=== PATIENT | male | born 1960 | race Caucasian/White ===

== ENCOUNTER 2023-01-19 06:45 | Outpatient (OUT) | payer BC, SELFPAY ==
[2023-01-19 07:27] LABS: Anion Gap 11.9; BUN Creatinine Ratio 16.9; Calcium 9.2 mg/dL (8.5-10.1); Carbon Dioxide 28.2 mmol/L (21.0-32.0); Chloride 104 mmol/L (98-107); Estimated GFR (African America >60 (>=60); Estimated GFR (Non-African Ame >60 (>=60); Glucose 102 mg/dL (74-106); Potassium 4.1 mmol/L (3.5-5.1); Sodium 140 mmol/L (136-145)
== END 2023-01-19 06:46 ==
LOC: LAB 06:51
PROVIDERS: PCP Internal Medicine
DX: R35.1 Nocturia (principal)
CPT/HCPCS: 36415; 80048

== ENCOUNTER 2023-02-04 11:11 | Outpatient (OUT) | payer BC, SELFPAY ==
--- NOTE | 2023-02-04 11:20 | XR_ITS ---
The [address] [address] Patient Name: SHAWANDA DIGGS MRN: [id number] date: 1960 Sex: M Assigned Patient Location: RAD Current Patient Location: [facility] Accession/Order Number: [id number] Exam Date: 02/04/2023 11:25 Report Date: 02/04/2023 12:03 At the request of: ZENY TRINIDAD Procedure: XR chest 2V EXAM: XR chest 2V HISTORY: Chronic cough R05.3 COMPARISON: None. TECHNIQUE: PA and lateral views of the chest. FINDINGS: The cardiomediastinal silhouette is normal. No focal consolidation is identified. There is no pneumothorax. No pleural effusion is noted. The osseous structures are intact. IMPRESSION: No acute cardiopulmonary process. Electronically authenticated by: QUYNH MENDOZA Date: 02/04/2023 12:03
== END 2023-02-04 11:12 | disposition home or self-care (01) ==
LOC: RAD 11:13
PROVIDERS: PCP Internal Medicine; Visit Provider Physician Assistant
DX: R05.3 Chronic cough (principal)
CPT/HCPCS: 71046

== ENCOUNTER 2023-08-24 06:31 | Outpatient (OUT) | payer BC, SELFPAY ==
[2023-08-24 07:09] LABS: Anion Gap 14.1; BUN Creatinine Ratio 15.6; Carbon Dioxide 26.8 mmol/L (21.0-32.0); Chloride 105 mmol/L (98-107); Estimated GFR (African America >60 (>=60); Estimated GFR (Non-African Ame >60 (>=60); Glucose 101 mg/dL (74-106); Potassium 3.9 mmol/L (3.5-5.1); Sodium 142 mmol/L (136-145)
== END 2023-08-24 06:32 | disposition home or self-care (01) ==
LOC: LAB 06:33
PROVIDERS: PCP Internal Medicine
DX: R35.1 Nocturia (principal)
CPT/HCPCS: 36415; 80048

== ENCOUNTER 2024-04-02 10:10 | Emergency (ER) | payer BC, SELFPAY ==
[2024-04-02 10:13] VITALS: BP 174/93; PULSE 95; TEMP 36.6; O2SAT 95; BMI 30.1
--- NOTE | 2024-04-02 10:22 | XR_ITS ---
The [address] [address] Patient Name: SHAWANDA DIGGS MRN: [id number] date: 1960 Sex: M Assigned Patient Location: ER Current Patient Location: ED.MAIN Accession/Order Number: [id number] Exam Date: 04/02/2024 10:30 Report Date: 04/02/2024 10:54 At the request of: RIMA GARCIA Procedure: XR abdomen 1V EXAMINATION: XR abdomen 1V HISTORY: Rectal pressure, possible constipation COMPARISON: No relevant comparison available. FINDINGS: BOWEL GAS PATTERN: Moderate to large amount of stool within the sigmoid colon and rectum. Relatively empty descending colon. No abnormal bowel dilation or appreciable fluid levels. CALCIFICATIONS: None significant. OTHER: Negative. No abnormal gaseous collections. XR/XR abdomen 1V IMPRESSION: 1. No bowel obstruction. 2. Moderate to large stool burden within sigmoid colon and rectum; possibly due to constipation. Electronically authenticated by: CAESAR WATKINS Date: 04/02/2024 10:54
--- NOTE | 2024-04-02 10:22 | ED.GENADUL1 ---
HPI HPI - General Adult General Chief complaint: Abdominal Pain Stated complaint: ABDOMINAL PAIN Time Seen by Provider: 04/02/24 10:13 Source: patient Mode of arrival: walk-in Limitations: no limitations History of Present Illness HPI narrative: 63-year-old male presents for chief complaint of rectal pressure. He states he normally has a bowel movement every morning and he had 1 yesterday but he felt like he could not go today. No bleeding or abdominal pain or vomiting. Related Data Home Medications ?Medication ?Instructions ?Recorded ?Confirmed desmopressin 0.2 mg tablet 0.2 mg PO BEDTIME 04/02/24 04/02/24 terbinafine HCl 250 mg tablet 250 mg PO DAILY 04/02/24 04/02/24 Allergies Allergy/AdvReac Type Severity Reaction Status Date / Time No Known Drug Allergies Allergy Verified 04/02/24 10:17 Opioid HPI Opioid Management Most Recent Opioid Data: No Data to Display Review of Systems ROS Narrative A ten point review of systems is negative except as noted above. Exam Narrative Exam Narrative: Nurses note and vital signs reviewed and patient is not hypoxic. General: The patient appears well and in no apparent distress. Patient is resting comfortably on cart. Skin: Warm, dry, no pallor noted. There is no rash noted. Head: Normocephalic, atraumatic Eye: Normal conjunctiva, no drainage Ears, Nose, Mouth, and Throat: oral mucosa is moist. Nares patent. Cardiovascular: Regular Rate and Rhythm Respiratory: Patient is in no distress, no accessory muscle use, lungs are clear to auscultation, no wheezing, rales or rhonchi Back: non-tender GI: Soft and nontender. Perianal area shows skin tag but no external hemorrhoids. Musculoskeletal: The patient has no evidence of calf tenderness, no pitting edema, symmetrical pulses noted bilaterally Neurological: A&O, normal speech Psychiatric: Cooperative Constitutional Vital Signs, click to edit/add: Last Vital Signs Temp 97.8 F 04/02/24 10:13 Pulse 95 H 04/02/24 10:13 Resp 20 04/02/24 10:13 BP 174/93 H 04/02/24 10:13 Pulse Ox 95 04/02/24 10:13 O2 Del Method Room Air 04/02/24 10:13 Course Vital Signs Vital signs: Vital Signs Temperature 97.8 F 04/02/24 10:13 Pulse Rate 95 H 04/02/24 10:13 Respiratory Rate 20 04/02/24 10:13 Blood Pressure 174/93 H 04/02/24 10:13 Pulse Oximetry 95 04/02/24 10:13 Oxygen Delivery Method Room Air 04/02/24 10:13 Temperature 97.8 F 04/02/24 10:13 Pulse Rate 95 H 04/02/24 10:13 Respiratory Rate 20 04/02/24 10:13 Blood Pressure 174/93 H 04/02/24 10:13 Pulse Oximetry 95 04/02/24 10:13 Oxygen Delivery Method Room Air 04/02/24 10:13 Medical Decision Making MDM Narrative Medical decision making narrative: KUB on my interpretation shows a large amount of stool in his rectum. He was given suppository and Dulcolax by mouth and he is able to be discharged home. Treatment diagnosis and follow-up were discussed with the patient. I do not suspect prostatitis. Differential Diagnosis Differential Diagnosis: Constipation, hemorrhoid Imaging Data Abdominal x-ray: My impression: Large amount of stool in rectum. Discharge Plan Discharge Stand Alone Forms: Work/School Release, Portal Instructions Chief Complaint: Abdominal Pain Clinical Impression: Constipation Patient Disposition: Home, Self-Care Time of Disposition Decision: 10:52 Condition: Good Mode of Transportation: Private Vehicle Prescriptions / Home Meds: No Action terbinafine HCl 250 mg tablet 250 mg PO DAILY desmopressin 0.2 mg tablet 0.2 mg PO BEDTIME Print Language: Northern Irish Instructions: Constipation (ED) Additional Instructions: Continue the MiraLAX. Referrals: SHAWANDA PA [Primary Care Provider] - 1 week
--- OUTSIDE RECORDS SUMMARY | 2024-04-02 10:39 | XMS_ITS | CCD ---
Author Organization [facility] Inform ion [facility] Care Team Providers Care Warning Analyst Name Role Phone ZENY TRINIDAD Admitting Unavailable ZENY TRINIDAD Attending Unavailable RONNA HAWKINS V Consulting Unavailable ZENY TRINIDAD Consulting Unavailable SHAWANDA PA Attending Unavailable Problems Problem Classification Problem Date Documented Da te Episodic/Chronic Other lower respiratory disease (4 sources) Cough; Translations: [COUGH] Onset: 07-29-2019 Episodic Screening and history of mental health and substance abuse codes (1 source) Personal history of nicotine dependence; Translations: [PERSONAL HISTORY OF NICOTINE DEPEND] Onset: 07-30-2019 Episodic Results Test Name Value Interpretation Reference Range Facil ity XR CHEST 2 Von 07-29-2019 XR CHEST 2 V Patient: SHERLYN DIGGS. Exam Date: 07/29/2019 : 1960 Gender:M Ordering : DR ZENY TRINIDAD PA Admission #: [id number] Family : Order #: [id number] CLICK HERE TO VIEW EXAM RADIOLOGY REPORT PROCEDURE: RADIOGRAPH CHEST 2 VIEWS COMPARISON: None. INDICATIONS: Acute cough for over two months, former smoker FINDINGS: LUNGS: No significant pulmonary parenchymal abnormalities. VASCULATURE: No increased pulmonary vasculature. PLEURA: No pneumothorax, effusion, or pleural thickening. Elevated right hemidiaphragm CARDIAC: No cardiomegaly or cardiac silhouette abnormality. MEDIASTINUM: No visible mass or adenopathy. BONES: No fracture or visible bone lesion. OTHER: Negative. CONCLUSION: No acute disease. Dictated by: Ronna Hawkins M.D. on 07/29/2019 at 18:40 Approved by: Ronna Hawkins M.D. on 07/29/2019 at 18:40 [facility] Encounters Encounter Date Encounter Type Care Provider Facility Start: 03-23-2024 End: 03-23-2024 ambulatory SHAWANDA PA Not Available Start: 07-29-2019 End: 07-30-2019 Patient encounter procedure ZENY TRINIDAD Facility:[facility] Payers Date Payer Category Payer Unknown [id number] 1961 Unknown [id number] 1960 Unknown [id number] 1960 Unknown [id number] Summary Purpose Family History No Family History Records FoundNo Family History Records Found Advance Directives No Advanced Directives Records FoundNo Advanced Directives Records Found Additional Source Comments (unrecognized sect ion and content) No Status Records FoundNo Status Records Found INFORMATION SOURCE (unrecogn ized section and content) DATE CREATED AUTHOR 07/30/2019 [facility] DATE CREATED AUTHOR AUTHOR'S ORGANIZ ATPENELOPE 03/25/2024 [facility] FOR RECORDS PERTAINING TO PATIENTS WHO ARE OR HAVE BEEN ENROLLED IN A CHEMICAL DEPENDENCY/SUBSTANCEABUSE PROGRAM, SOME INFORMATION MAY BE OMITTED. This clinical summary was aggregated from multiple sources. Caution should be exercised in using it in the provision of clinical care. This summary normalizes information from multiple sources, and as a consequence, information in this document may materially change the coding, format and clinical context of patient data. In addition, data may be omitted in some cases. CLINICAL DECISIONS SHOULD BE BASED ON THE PRIMARY CLINICAL RECORDS. [facility] [employer] provides no warranty or guarantee of the accuracy or completeness of information in this document.
[2024-04-02] MEDS: BISACODYL 5 MG TABLET 10 MG PO (11:00)
[2024-04-02] MEDS: BISACODYL 10 MG RECTAL SUPPOSITORY PR (11:01)
== END 2024-04-02 11:07 | disposition home or self-care (01) ==
PROVIDERS: Emergency Provider Emergency Medicine; PCP Internal Medicine
DX: K59.00 Constipation, unspecified (principal)
CPT/HCPCS: 74018; 99283

== ENCOUNTER 2025-06-05 07:11 | Outpatient (OUT) | payer BC, SELFPAY ==
--- OUTSIDE RECORDS SUMMARY | 2025-06-05 07:13 | XMS_ITS | CCD ---
Author Organization [facility] Inform ion Partnership [facility] Care Team Providers Care Fire Protection Engineering Technician Name Role Phone ZENY TRINIDAD Admitting Unavailable ZENY TRINIDAD Attending Unavailable RONNA HAWKINS V Consulting Unavailable ZENY TRINIDAD Consulting Unavailable Garrett Orozco MD Unavailable [phone] Garrett Orozco MD Primary Care Provider ZENY TRINIDAD Attending Unavailable Allergies Allergy ClassificationReported Allergen(s)Allergy TypeDate of OnsetReaction(s) Facility (4 sources)atorvastatinDrug Nsyvtzx06-16-3173[facility] Work Phone: (4 sources)Rosuvastatin calciumAllergy to zxakqcbbj59-08-7899[facility] (4 sources)SimvastatinAllergy to xwslpylwk84-26-6544[facility] Medications Current Medications MedicationDrug Class(es)DatesSig (Normalized)Sig (Original)cholecalciferol 0.025 mg oral tablet (3 sources)Vitamin Dtake 1 tablet by mouth once dailycholecalciferol (Vitamin D- 3) 25 MCG tablet Take 25 mcg by mouth Daily Activedesmopressin acetate 0.2 mg oral tablet (4 sources)Vasopressin Analog, Factor VIII Activatordesmopressin (DDAVP) 0.2 MG tablet Take 0.2 mg by mouth as needed at bedtime Activedesonide 0.5 mg/ml topical cream (4 sources)CorticosteroidStart: 48-69-3476dasstxqb (DesOwen) 0.05 % cream Apply 1 application topically 2 (two) times a day as needed for irritation 08/21/2022 Activefamotidine 20 mg oral tablet (4 sources)Histamine-2 Receptor Antagonistfamotidine (Pepcid) 20 MG tablet Take 1 tablet by mouth as needed at bedtime for indigestion or heartburn. Active fenofibrate 145 mg oral tablet (1 source)Peroxisome Proliferator Receptor alpha AgonistStart: 91-92-6012qwfr 1 tablet by mouth once dailyfenofibrate (Tricor) 145 MG tablet Indications: Mixed hyperlipidemia Take 1 tablet (145 mg) by mouth Daily 90 tablet 3 03/25/2025 ActiveStart: 91-51-8907boxm 1 tablet by mouth once dailyfenofibrate (Tricor) 145 MG tablet Indications: Mixed hyperlipidemia Take 1 tablet (145 mg) by mouth Daily 90 tablet 3 03/25/2025 Activefluorouracil 50 mg/ml topical cream (4 sources)Nucleoside Metabolic InhibitorStart: 45-55-0438hdzntznoesct (Efudex) 5 % cream Apply 1 application topically Daily as needed 08/27/2023 Active loratadine 10 mg oral tablet (2 sources) End: 11-41-5697kolk 1 tablet by mouth once dailyloratadine (Claritin) 10 MG tablet Take 10 mg by mouth Daily 03/24/2025 Discontinued (Therapy completed) Multiple Vitamin (MULTIVITAMIN ADULT PO) (4 sources)take 1 tablet by mouth once dailyMultiple Vitamin (MULTIVITAMIN ADULT PO) Take 1 tablet by mouth 1 (one) time each day. Activeomeprazole 20 mg delayed release oral capsule (2 sources)Proton Pump Inhibitor End: 52-37-6139hbne 1 capsule by mouth once daily as neededomeprazole (PriLOSEC) [address] capsule Take 1 capsule by mouth 1 (one) time each day at the same time. PRN 03/24/2025 Discontinued (Therapy completed)terbinafine 250 mg oral tablet (3 sources)Allylamine AntifungalStart: 03-24-2025 End: 91-69-8993vzfb 1 tablet by mouth once dailyterbinafine (LamISIL) 250 MG tablet Indications: Onychomycosis of great toe Take 1 tablet (250 mg) by mouth Daily 90 tablet 03/24/2025 06/22/2025 Activetriamcinolone acetonide 0.001 mg/mg topical ointment (3 sources)CorticosteroidStart: 27-16-5842weiqrwxnuqyng (Kenalog) 0.1 % ointment Apply 1 application topically 2 (two) times a day as needed for irritation 03/02/2025 Activezinc gluconate 50 mg oral tablet (3 sources)take 1 tablet by mouth once dailyzinc gluconate 50 MG tablet Take 50 mg by mouth Daily Active Problems Active Problems Problem ClassificationProblemDateDocumented DateEpisodic/ChronicDisorders of lipid metabolism (7 sources)Mixed hyperlipidemia; Translations: [Mixed hyperlipidemia]Onset: 695802-86-8703WeyqwukFjgujzzkztjlqy and diverticulitis (6 sources)Diverticular disease; Translations: [Diverticulosis of intestine, part unspecified, without perforation or abscess without bleeding]Onset: 630019-45-5186VmzmlziIjdvynywia disorders (6 sources)Gastroesophageal reflux disease; Translations: [Gastro-esophageal reflux disease without esophagitis]Onset: 640549-19-9941DgtophjEzdyyivhnra of prostate (6 sources)Benign prostatic hyperplasia; Translations: [Benign prostatic hyperplasia without lower urinary tract symptoms]Onset: ChronicMycoses (2 sources)Onychomycosis of toenails; Translations: [Tinea unguium]03-24-2025 EpisodicOther circulatory disease (5 sources)Labile hypertension due to being in a clinical environment; Translations: [Elevated blood-pressure reading, without diagnosis of hypertension]Onset: 513299-16-6293PtcqoxqrNxbrb lower respiratory disease (4 sources)Cough; Translations: [COUGH]Onset: 69-90-9302DdfnqnhdMrpjt nutritional; endocrine; and metabolic disorders (5 sources)Overweight; Translations: [Overweight]Onset: EpisodicOther screening for suspected conditions (not mental disorders or infectious disease) (2 sources)Patient encounter status; Translations: [Encounter for screening for malignant neoplasm of prostate]01-27-5515QouucqhiVfdlw upper respiratory disease (6 sources)Seasonal allergy; Translations: [Other seasonal allergic rhinitis] Onset: 950687-27-1723HfslvchDxzhdiqq codes; unclassified (1 source)Other specified health status; Translations: [Other drug allergy] Onset: 019755-90-3261VwcugnkdXraohyughpn; intervertebral disc disorders; other back problems (6 sources)Lumbosacral spondylosis without myelopathy; Translations: [Spondylosis without myelopathy or radiculopathy, lumbosacral region]Onset: 367080-77-4644Twghqhc Past or Other Problems Problem ClassificationProblemDateDocumented DateEpisodic/ChronicDiabetes mellitus without complication (6 sources)Impaired glucose tolerance; Translations: [Impaired glucose tolerance (oral)]Onset: 189013-95-1832YltxbhhzGcinr lower respiratory disease (6 sources)Chronic cough; Translations: [Chronic cough]Onset: 02-04-2023 34-46-4596PiucvjpaVupetwxzu and history of mental health and substance abuse codes (7 sources)Personal history of nicotine dependence; Translations: [Ex-smoker] Onset: 925353-96-7588Awihvrco Results Test NameValueInterpretationReference RangeFacilityCBC (INCLUDES DIFF/PLT)on 61-45-1013Zbyrdvoqz (Bld) [#/Vol]0.049 10*3/uLNormal0-200[facility] Comment on above:Performed By: #### 7600, 496, 91793, 6399 #### [facility] [place] [address] Rail Project Engineer: Kosta Senior MDBasophils/100 WBC (Bld)0.7 %NormalQuest DiagnosticsComment on above:Performed By: #### 7600, 496, 90597, 6399 #### [facility] [place] [address] Rail Project Engineer: Kosta Senior MDEosinophils (Bld) [#/Vol]0.112 10*3/uLNormal 15-500Quest DiagnosticsComment on above:Performed By: #### 7600, 496, 78298, 6399 #### [facility] [place] [address] Rail Project Engineer: Kosta Senior MDEosinophils/100 WBC (Bld)1.6 %NormalQuest DiagnosticsComment on above:Performed By: #### 7600, 496, 73351, 6399 #### [facility] of [place] [address] Rail Project Engineer: Kosta Senior MDErythrocyte distribution width (RBC) [Ratio] 13.5 %Aqaizf68.0-15.0Quest DiagnosticsComment on above:Performed By: #### 7600, 496, 50688, 6399 #### [facility] of [place] [address] [employer] Project Engineer: Kosta Senior MDHematocrit (Bld) [Volume fraction]49.9 %Normal 38.5-50.0Quest DiagnosticsComment on above:Performed By: #### 7600, 496, 16927, 6399 #### [facility] of [place] [address] Rail Project Engineer: Kosta Senior MDHemoglobin (Bld) [Mass/Vol]16.2 g/dLNormal 13.2-17.1Quest DiagnosticsComment on above:Performed By: #### 7600, 496, 40088, 6399 #### [facility] of [place] [address] Rail Project Engineer: Kosta Senior MDLymphocytes (Bld) [#/Vol]1.673 10*3/uLNormal 850-3900Quest DiagnosticsComment on above:Performed By: #### 7600, 496, 87425, 6399 #### [facility] of [place] [address] Rail Project Engineer: Kosta Senior MDLymphocytes/100 WBC (Bld)23.9 %NormalQuest DiagnosticsComment on above:Performed By: #### 7600, 496, 37961, 6399 #### [facility] of [place] [address] Rail Project Engineer: Kosta Senior MDMCH (RBC) [Entitic mass]29.6 vnOkpzaw66.0-33.0 [facility]osticsComment on above:Performed By: #### 7600, 496, 41274, 6399 #### [facility] [place] [address] Rail Project Engineer: Kosta Senior MDMCHC (RBC) [Mass/Vol]32.5 g/mMVzggjn88.0-36.0 [facility]osticsComment on above:Result Comment: For adults, a slight decrease in the calculated MCHC value (in the range of 30 to 32 g/dL) is most likely not clinically significant; however, it should be interpreted with caution in correlation with other red cell parameters and the patient's clinical condition.Performed By: #### 7600, 496, 28310, 6399 #### [facility] [place] [address] Rail Project Engineer: Kosta Senior MDMCV (RBC) [Entitic vol]91.1 gROckbnc03.0-100.0 [facility]osticsComment on above:Performed By: #### 7600, 496, 92635, 6399 #### [facility] [place] [address] Rail Project Engineer: Kosta Senior MDMonocytes (Bld) [#/Vol]0.448 10*3/uLNormal 200-950Quest DiagnosticsComment on above:Performed By: #### 7600, 496, 41274, 6399 #### [facility] of [place] [address] Rail Project Engineer: Kosta Senior MDMonocytes/100 WBC (Bld)6.4 %NormalQuest DiagnosticsComment on above:Performed By: #### 7600, 496, 26086, 6399 #### [facility] of [place] [address] Rail Project Engineer: Kosta Senior MDNeutrophils (Bld) [#/Vol]4.718 10*3/uLNormal 1500-7800Quest DiagnosticsComment on above:Performed By: #### 7600, 496, 31191, 6399 #### [facility] of [address], [address] [place] [address] Rail Project Engineer: Kosta Hazelutrophils/100 WBC (Bld)67.4 %NormalQuest DiagnosticsComment on above:Performed By: #### 7600, 496, 67850, 6399 #### [facility] of [address], [address] [place] [address] Rail Project Engineer: Kosta Senior MDPlatelet mean volume (Bld) [Entitic vol]9.1 fL Normal7.5-12.5Quest DiagnosticsComment on above:Performed By: #### 7600, 496, 99503, 6399 #### [facility] of [address], [address] [place] [address] Rail Project Engineer: Kosta Senior MDPlatelets (Bld) [#/Vol]248 10*3/uLNormal 140-400Quest DiagnosticsComment on above:Performed By: #### 7600, 496, 04101, 6399 #### [facility] of [address], [address] [place] [address] Rail Project Engineer: Kosta Senior MDRBC (Bld) [#/Vol]5.48 10*6/uLNormal4.20-5.80 [facility]osticsComment on above:Performed By: #### 7600, 496, 14192, 6399 #### [facility] of [address], [address] [place] [address] Rail Project Engineer: Kosta Senior MDWBC (Bld) [#/Vol]7.0 10*3/uLNormal3.8-10.8 [facility]osticsComment on above:Performed By: #### 7600, 496, 08620, 6399 #### [facility] of [address], [address] [place] [address] Rail Project Engineer: Kosta Senior MDCOMPREHENSIVE METABOLIC PANELon 03-25-2025 Albumin [Mass/Vol]4.9 g/dLNormal3.6-5.1Quest DiagnosticsComment on above: Performed By: #### 7600, 496, 83190, 6399 #### [facility] of [address], [address] [place] [address] Rail Project Engineer: Kosta Senior MDAlbumin/Globulin [Mass ratio]1.8 {ratio}Normal 1.0-2.5Quest DiagnosticsComment on above:Performed By: #### 7600, 496, 42370, 6399 #### [facility] of [place] [address] Rail Project Engineer: Kosta Senior MDALP [Catalytic activity/Vol]68 U/CNgafrs81-304 [facility]osticsComment on above:Performed By: #### 7600, 496, 69237, 6399 #### [facility] of [address], [address] [place] [address] Rail Project Engineer: Kosta Senior MDALT [Catalytic activity/Vol]18 U/LNormal9-46 [facility]osticsComment on above:Performed By: #### 7600, 496, 06308, 6399 #### [facility] of [place] [address] Rail Project Engineer: Kosta Senior MDAST [Catalytic activity/Vol]21 U/KDdtooa70-42 [facility]osticsComment on above:Performed By: #### 7600, 496, 69008, 6399 #### [facility] of [place] [address] Rail Project Engineer: Kosta Senior MDBilirubin [Mass/Vol]0.6 mg/dLNormal0.2-1.2 [facility]osticsComment on above:Performed By: #### 7600, 496, 94087, 6399 #### [facility] of [place] [address] Rail Project Engineer: Kosta Merati MDBUN/CREATININE RATIOSEE NOTE:Normal6-22Quest DiagnosticsComment on above:Result Comment: Not Reported: BUN and Creatinine are within reference range.Performed By: #### 7600, 496, 32805, 6399 #### [facility] of [place] [address] Rail Project Engineer: Kosta Senior MDCalcium [Mass/Vol]9.9 mg/dLNormal8.6-10.3[facility] DiagnosticsComment on above:Performed By: #### 7600, 496, 27123, 6399 #### [facility] [place] [address] Rail Project Engineer: Kosta Senior MDChloride [Moles/Vol]108 mmol/UCjnzsp33-485 [facility]osticsComment on above:Performed By: #### 7600, 496, 44384, 6399 #### [facility] of [place] [address] Rail Project Engineer: Kosta Senior MDCO2 [Moles/Vol]23 mmol/AQhcdlp64-90Wgaqu DiagnosticsComment on above:Performed By: #### 7600, 496, 61986, 6399 #### [facility] [place] [address] Rail Project Engineer: Kosta ARCEOreatinine [Mass/Vol]0.96 mg/dLNormal0.70-1.35 [facility]osticsComment on above:Performed By: #### 7600, 496, 92832, 6399 #### [facility] of [place] [address] Rail Project Engineer: Kosta Senior MDGFR/1.73 sq M.predicted among non-blacks MDRD (S/P/Bld) [Vol rate/Area]87 mL/min/{1.73_m2}Normal> OR = 60[facility] Comment on above:Performed By: #### 7600, 496, 80218, 6399 #### [facility] of [place] [address] Rail Project Engineer: Kosta Senior MDGlobulin (S) [Mass/Vol]2.7 g/dLNormal1.9-3.7 [facility]osticsComment on above:Performed By: #### 7600, 496, 88861, 6399 #### [facility] of [place] [address] Rail Project Engineer: Kosta Senior MDGlucose [Mass/Vol]89 mg/oDHqqhma76-98Yzned DiagnosticsComment on above:Result Comment: Fasting reference intervalPerformed By: #### 7600, 496, 18725, 6399 #### [facility] of [place] [address] Rail Project Engineer: Kosta Senior MDPotassium [Moles/Vol]4.2 mmol/LNormal3.5-5.3 [facility]osticsComment on above:Performed By: #### 7600, 496, 25064, 6399 #### [facility] of [place] [address] Rail Project Engineer: Kosta Senior MDProtein [Mass/Vol]7.6 g/dLNormal6.1-8.1[facility] DiagnosticsComment on above:Performed By: #### 7600, 496, 96420, 6399 #### [facility] of [place] [address] Rail Project Engineer: Kosta Senior MDSodium [Moles/Vol]142 mmol/ABaonwt974-419Fhkkr DiagnosticsComment on above:Performed By: #### 7600, 496, 19355, 6399 #### [facility] of [place] [address] Rail Project Engineer: Kosta Senior MDUrea nitrogen [Mass/Vol]19 mg/dLNormal7-25 [facility]osticsComment on above:Performed By: #### 7600, 496, 19335, 6399 #### [facility] [address], [address] [place] [address] Rail Project Engineer: Kosta Senior MDHEMOGLOBIN A1con 28-12-7663ErN0z (Bld) [Mass fraction]5.6 %Normal<5.7Quest DiagnosticsComment on above:Result Comment: For the purpose of screening for the presence of diabetes: <5.7% Consistent with the absence of diabetes 5.7-6.4% Consistent with increased risk for diabetes (prediabetes) > or =6.5% Consistent with diabetes This assay result is consistent with a decreased risk of diabetes. Currently, no consensus exists regarding use of hemoglobin A1c for diagnosis of diabetes in children. According to [place] Diabetes Association (ADA) guidelines, hemoglobin A1c <7.0% represents optimal control in non- diabetic patients. Different metrics may apply to specific patient populations. Standards of Medical Care in Diabetes(ADA).Performed By: #### 7600, 496, 24677, 6399 #### [facility] [place] [address] Rail Project Engineer: Kosta Senior MDLIPID PANEL, STANDARDon 66-65-9925Yibtdlpaomg [Mass/Vol]195 mg/dLNormal<200[facility] DiagnosticsComment on above:Order Comment: FASTING:YES FASTING: YESPerformed By: #### 7600, 496, 98684, 6399 #### [facility] [place] [address] Rail Project Engineer: Kosta Senior MDCholesterol in HDL [Mass/Vol]49 mg/dLNormal> OR = 40Quest DiagnosticsComment on above:Order Comment: FASTING:YES FASTING: YESPerformed By: #### 7600, 496, 37189, 6399 #### [facility] [place] [address] Rail Project Engineer: Kosta Senior MDCholesterol in LDL [Mass/Vol]121 mg/dLHigh [facility]osticsComment on above:Order Comment: FASTING:YES FASTING: YESResult Comment: Reference range: <100 Desirable range <100 mg/dL for primary prevention; <70 mg/dL for patients with CHD or diabetic patients with > or = 2 CHD risk factors. LDL-C is now calculated using the Frank calculation, which is a validated novel method providing better accuracy than the Friedewald equation in the estimation of LDL-C. Marcos MCFADEDN et al. VINICIO. 2013;310(19): 1320-6365 (http://education.Bestowed.BlackBridge/faq/SJL582)Performed By: #### 7600, 496, 89133, 6399 #### [facility] [address], [address] [place] [address] Rail Project Engineer: Kosta ARCEOholesterol.total/Cholesterol in HDL [Mass ratio]4.0 {ratio}Normal<5.0Quest DiagnosticsComment on above:Order Comment: FASTING:YES FASTING: YESPerformed By: #### 7600, 496, 02085, 6399 #### [facility] [address], [address] [place] [address] Rail Project Engineer: Kosta ALBERTS HDL NPENPLTSAQS385 mg/dL (calc)High<130 [facility] DiagnosticsComment on above:Order Comment: FASTING:YES FASTING: YESResult Comment: For patients with diabetes plus 1 major ASCVD risk factor, treating to a non-HDL-C goal of <100 mg/dL (LDL-C of <70 mg/dL) is considered a therapeutic option.Performed By: #### 7600, 496, 99204, 6399 #### [facility] [place] [address] Rail Project Engineer: Kosta Senior MDTriglyceride [Mass/Vol]141 mg/dLNormal<150 [facility] DiagnosticsComment on above:Order Comment: FASTING:YES FASTING: YESPerformed By: #### 7600, 496, 40464, 6399 #### [facility] [address], [address] [place] [address] Rail Project Engineer: Kosta MANNSA, TOTALon 75-47-3849ORN, TOTAL2.40 ng/mL Normal< OR = 4.00Quest DiagnosticsComment on above:Result Comment: The total PSA value from this assay system is standardized against the WHO standard. The test result will be approximately 20% lower when compared to the equimolar-standardized total PSA (Shaggy Newton). Comparison of serial PSA results should be interpreted with this fact in mind. This test was performed using the Siemens chemiluminescent method. Values obtained from different assay methods cannot be used interchangeably. PSA levels, regardless of value, should not be interpreted as absolute evidence of the presence or absence of disease.Performed By: #### 7600, 496, 73423, 6399 #### [facility] [address], [address] [place] [address] Rail Project Engineer: Kosta Senior MDXR CHEST 2 Von 44-14-7090VT CHEST 2 VPatient: GARRETT DIGGS Exam Date: 07/29/2019 : 1960 Gender:M Ordering : DR ZENY TURNER Admission #: [id number] Family : Order #: [id number] CLICK HERE TO VIEW EXAM RADIOLOGY REPORT [...] by: Ronna Hawkins M.D. on 07/29/2019 at 18:40[facility] Vital Signs Date TimeVital SignValuePerforming AimlnagwhYkfzccdu24-73-4518 11:02040Body pebryd216.3 cmZeny TURNER Work Phone: [facility] HealthcareCzfhotubwz06-85-3076 11:02-0400Body mass index (BMI) [Ratio]28.09 kg/j9ZjedgZeny TURNER Work Phone: [facility] HealthcareWbksababaa42-23-8512 11:02-0400Body .35 kgLarryhermes Hemmer PA Work Phone: [facility] BransonHmslvjejrl74-61-3608 11:02-0400Diastolic blood vxyqricn18 mm[Hg]Zeny Hemmer PA Work Phone: [facility] BransonQyzhlawsgf97-63-0973 11:02-0400Heart rate94 /min Zeny Hemmer PA Work Phone: [facility] BransonVutiiofiry99-39-7166 11:02-0400Respiratory rate16 /minLarryhermes Hemmer PA Work Phone: [facility] BransonQejuizesof44-54-9590 11:02-7911KuQ3% (BldA) [Mass fraction]95 %Zeny Hemmer PA Work Phone: [facility] BransonBncadolsxu96-05-8931 11:02-0400Systolic blood pwojtugb385 mm[Hg]Zeny Hemmer PA Work Phone: [facility] Encounters Encounter DateEncounter TypeCare ProviderFacilityStart: 03-25-2025 End: 92-33-5556Ypwegt-up encounterLarryhermes Adam Hemmer PA Work Phone: [facility] Nicole MedinceComment on above:CBC and differential, Comprehensive metabolic panel, Lipid panel, Additional followed-up results: 2Start: 03-24-2025 End: 96-62-6844Xeyops flowsYing Adam Hemmer PA Work Phone: [facility] Nicole MedinceStart: 03-24-2025 End: 38-39-4464Puvkds flowsYing Adam Hemmer PA Work Phone: [facility] Nicole MedinceStart: 03-24-2025 End: 24-03-0011Bcbpqql encounter statusZeny Trinidad PA Work Phone: [facility] Work Phone: Start: 03-24-2025 End: 40-87-8423Jrlriera preventive med est patient 65yrs& olderZeny Tarangomer PA Work Phone: [facility] HospitaleComment on above:Wellness examination (Primary Dx); IGT (impaired glucose tolerance); Mixed hyperlipidemia ; Seasonal allergies; Benign prostatic hyperplasia without lower urinary tract symptoms; Diverticulosis; Gastroesophageal reflux disease without esophagitis; Lumbosacral spondylosis without myelopathy; Former smoker; Chronic cough; Overweight; Screening for malignant neoplasm of prostate; White coat syndrome without diagnosis of hypertension; Onychomycosis of great toeStart: 03-24-2025 End: 50-07-7762bgutvstsdkVAHYP M HEMMERNot AvailableStart: 07-29-2019 End: 48-76-1716Qlximkp encounter procedureZENY TRINIDADFacility:H1 Procedures DateProcedureProcedure DetailPerforming ClinicianStart: 36-51-8696Jqadtkeddyl Zeny TURNER Work Phone: Plan of Treatment DateCare ActivityDetailAuthorStart: 03-24-2026 End: 18-76-9192Qpyqksm encounter sntqvjpiq55/13/2026 8:00 AM EDT [facility] [address] [facility] [address] [place] [address] Zeny Trinidad PA [address] [facility] [address] [place] [address] [facility] HospitaleStart: 03-07-2026 Screening for malignant neoplasm of colonNOMS HealthcareStart: 02-06-2026 Pneumococcal Vaccine: 65+ Years (3 of 3 - PCV20 or PCV21)Pneumococcal Vaccine: 65+ Years (3 of 3 - PCV20 or PCV21)[facility] HealthcareStart: 05-07-2025 End: 61-58-0437DGN panel - Blood by Automated countCBC Lab Routine Onychomycosis of great toe Expected: 05/07/2025 (Approximate), Expires: 03/24/2026NONV HealthcareComment on above:Expected: 05/07/2025 (Approximate), Expires: 03/24/2026Start: 05-07-2025 End: 74-81-4412Bnlkdag function 2000 panel - Serum or PlasmaHepatic function panel Lab Routine Onychomycosis of great toe Expected: 05/07/2025 (Approximate), Expires: 03/24/2026NONV HealthcareComment on above:Expected: 05/07/2025 (Approximate), Expires: 03/24/2026Start: 32-83-3100Yrahuxmhe vaccination Influenza Vaccine (#1)[facility] HealthcareStart: 03-24-2025 End: 10-63-3294Hexuded encounter zwhjyamfn45/13/2025 11:00 AM EDT [facility] [address] [facility] [address] [place] [address] Zeny Trinidad PA [address] [facility] [address] [place] [address] ArrivedNONV [facility] Nicole [facility] HospitaleComment on above:ArrivedStart: 40-17-0110Csmgowaig for malignant neoplasm of colonNONV HealthcareCBC W Auto Differential panel - BloodCBC and differential Lab Routine Wellness examination Mixed hyperlipidemia Ordered: 03/24/2025[facility] Healthcare Work Phone: Comment on above:Ordered: 03/24/2025omprehensive metabolic 2000 panel - Serum or PlasmaComprehensive metabolic panel Lab Routine Wellness examination IGT (impaired glucose tolerance) Mixed hyperlipidemia Ordered: 03/24/2025[facility] HealthcareComment on above:Ordered: 03/24/2025Hemoglobin A1c/Hemoglobin.total in BloodHemoglobin A1c Lab Routine Wellness examination IGT (impaired glucose tolerance) Ordered: 03/24/2025[facility] HealthcareComment on above:Ordered: 03/24/2025Lipid 1996 panel - Serum or PlasmaLipid panel Lab Routine Wellness examination Mixed hyperlipidemia Ordered: 03/24/2025[facility] HealthcareComment on above:Ordered: 03/24/2025Prostate specific Ag [Mass/volume] in Serum or PlasmaPSA Lab Routine Wellness examination Benign prostatic hyperplasia without lower urinary tract symptoms Screening for malignant neoplasm of prostate Ordered: 03/24/2025[facility] HealthcareComment on above:Ordered: 03/24/2025 Immunizations Immunization DateImmunizationNotesCare HbncujbfAkiznxqg28-87-4612toqfphnlg, high dose seasonal, preservative-freeZeny TURNER Work Phone: [facility] HealthcareQlrkynhjqs39-76-5501vqoyxfzeg virus vaccine, unspecified formulationKaren Hemmer PA Work Phone: [phone] [place], [place] [address]Whmjqbspse17-51-5019IJKSBLF - Respiratory syncytial virus (RSV), vaccine, bivalent, protein subunit RSV prefusion F, dil uent reconstituted, 0.5 mL, PFKaren Hemmer PA Work Phone: [phone] [place], [place] [address]Mqigmyqvyo94-20-7339Myhqqhpoh, injectable, Madin Brenda Canine Kidney, preservative free, quadrivalentKaren Hemmer PA Work Phone: [phone] [place], [place] [address]Gvwssnsxfz07-33-9452aixmexjmt, injectable, quadrivalent, preservative freeKaren Hemmer PA Work Phone: [phone] [place], [place] [address]Nylvzvgymd24-56-7505Pwbthp Bivalent Booster 12 Years And OlderKaren Hemmer PA Work Phone: [phone] [place], [place] [address]Lkwurpykno40-77-0962smbolcarf, injectable, quadrivalent, preservative freeKaren Hemmer PA Work Phone: [phone] [place], [place] [address]Cvpqfwwfha72-05-6998utxgfaavrcqi polysaccharide vaccine, 23 valentKaren Hemmer PA Work Phone: [phone] [place], [place] [address]Glifjdhtcp37-72-7225qczlffzei, injectable, quadrivalent, preservative freeKaren Hemmer PA Work Phone: [phone] [place], [place] [address]Uhwfstybwm01-46-8380rtdfcl vaccine recombinant Zeny Hemmer PA Work Phone: [phone])[facility]-[address] [place], [place] [address]Cechyahgdt47-94-0052qemgjvgsieyt conjugate vaccine, 13 valentKaren Hemmer PA Work Phone: [phone] [place], [place] [address]Fwehzvukdi69-93-9499aqohfkhqs, injectable, quadrivalent, preservative freeKaren Hemmer PA Work Phone: [phone] [place], [place] [address]Gdtaexrraw94-03-3084kutnpytxm, injectable, quadrivalent, preservative freeKaren Hemmer PA Work Phone: [facility] HealthcareBpnsczhwun70-18-7716flguowmhu, seasonal, injectable, preservative freeKaren Hemmer PA Work Phone: [facility] HealthcareBdgheenvbp46-54-3981astlehlkc, injectable, quadrivalent, preservative freeKaren Hemmer PA Work Phone: [facility] HealthcareBjceoahfcm39-05-2648idataxiqv, seasonal, injectable, preservative freeKaren Hemmer PA Work Phone: [facility] HealthcareRwjhyjgdya63-36-6072sboptidi influenza, intradermal, preservative freeKaren Hemmer PA Work Phone: [facility] HealthcareFeqrseghab02-96-5118dmnxwqcv influenza, intradermal, preservative freeKaren Hemmer PA Work Phone: [facility] HealthcareVghizxdalu36-93-3851fexmlim toxoid, reduced diphtheria toxoid, and acellular pertussis vaccine, adsorbedKaren Hemmer PA Work Phone: [facility] Payers DatePayer CategoryPayerPolicy [id number] Sub[facility] Plan / Payer (Effective 2020-Present) Name: Garrett Diggs Relation to Subscriber: Self Name: Garrett Diggs Payer ID:Not on file Type: Not on file Address: [place] [id number] Social History DateTypeDetailFacilityStart: 39-14-8468Mcmfzgd smoking status MEISEx-smokerThree [facility] End: 88-38-5693Cnxctgb of tobacco useCurrent smokerNOMS Healthcare End: 08-76-8407Rkekcbn of tobacco useCigarette SmokerNOMS HealthcareStart: 90-40-1810Vgdcklb use and exposureSmokeless tobacco non-userNOMS Healthcare Start: 03-23-2024 End: 02-01-4842Wazltwfru beverage intakeCurrent drinker of alcohol (finding)[facility] HealthcareStart: 03-16-2024 End: 08-02-1850Kuqknpzrf beverage intakeNOMS HealthcareStart: 01-30-2023 End: 65-07-5112Z3091 Health LiteracyNOMS HealthcareHow often do you need to have someone help you when you read instructions, pamphlets, or other written material from your doctor or pharmacy [SILS]NeverNOMS HealthcareWithin the last year, have you been afraid of your partner or ex-partner?NoNOMS HealthcareAre you now , , , , never or living with a partner?Never marriedNOMS HealthcareHow often to you have a drink containing alcohol?2-4 times a monthNOMS HealthcareHow many standard drinks containing alcohol do you have on a typical day?1 or 2NOMS HealthcareHow hard is it for you to pay for the very basics like food, housing, medical care, and heatingNot very hardNOMS HealthcareDo you feel stress - tense, restless, nervous, or anxious, or unable to sleep at night because yourmind is troubled all the time - these days [OSQ]Rather muchNOMS Healthcare(I/We) worried whether (my/our) food would run out before (I/we) got money to buy more.Never trueNOMS HealthcareIn the past 12 months, has lack of transportation kept you from medical appointments or from getting medications?NoNOMS HealthcareStart: 99-02-5213Rjs assigned at birthNot on [facility] campusNONV Healthcare Functional Status AehaWjnxaaubsoTvewecUlfnrpgg14-70-8969Vfpwnby Health Questionnaire 2 item (PHQ- 2) [Reported][facility] Telephone encounter Note 03-25-2025 Note Date & YaehOnkkHtunnuzx38-84-5221 Telephone encounter Note* Telephone Encounter - YUE Balderrama - 03/25/2025 1:12 PM EDT Apps [employer] Message [facility] Note 03-25-2025 Note Date & OodnDpyvXhibgjkv26-13-4282 Miscellaneous Notes* Telephone Encounter - YUE Balderrama - 03/25/2025 1:12 PM EDT [employer] Message documented in this encounterNOMS Healthcare History of Present illness Narrative 03-24-2025 Note Date & AugtKhulEpsmsrbh44-30-5339 History of Present illness Narrative* YUE Balderrama - 03/24/2025 11:00 AM EDT Images from the original note were not included. Subjective Patient ID: Garrett Diggs is a 64 y.o. male who presents for wellness. Subjective Garrett Diggs is a 64 y.o. male and is here for a comprehensive physical exam. The patient reports no problems. States was on three months of Lamisil and it was starting to help, but both great toes still have fungal infection. No side effects of Lamisil when he took it last time. Still using topical antifungal treatment. 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 Over the past 2 weeks, how often have you been bothered by any of the following problems? Little interest or pleasure in doing things: Not at all Feeling down, depressed, or hopeless: Not at all Patient Health Questionnaire-2 Score: 0 Current Outpatient Medications on File Prior to Visit Medication Sig Dispense Refill cholecalciferol (Vitamin D-3) 25 MCG tablet Take 25 mcg by mouth Daily desmopressin (DDAVP) 0.2 MG tablet Take by mouth at bedtime. (Patient taking differently: Take by mouth at bedtime PRN) desonide (DesOwen) 0.05 % cream Apply 1 application topically in the morning and 1 application before bedtime. (Patient taking differently: Apply 1 application topically in the morning and 1 application before bedtime. PRN.) fluorouracil (Efudex) 5 % cream Apply topically Daily (Patient taking differently: Apply topically Daily PRN) triamcinolone (Kenalog) 0.1 % ointment APPLY TO SCALP ONCE A DAY FOR 2 WEEKS POST EFUDEX USE (Patient taking differently: PRN) zinc gluconate 50 MG tablet Take 50 mg by mouth Daily famotidine (Pepcid) 20 MG tablet Take 1 tablet by mouth as needed at bedtime for indigestion or heartburn. Multiple Vitamin (MULTIVITAMIN ADULT PO) Take 1 tablet by mouth 1 (one) time each day. [DISCONTINUED] loratadine (Claritin) 10 MG tablet Take 10 mg by mouth Daily [DISCONTINUED] omeprazole (PriLOSEC) [address] capsule Take 1 capsule by mouth 1 (one) time each dayat the same time. PRN No current facility-administered medications on file prior to visit. I have reviewed and reconciled the history and medication list with the patient today. Allergies Allergen Reactions Atorvastatin Other Reaction(s): myalgias Rosuvastatin Other Reaction(s): myalgias Simvastatin Other Reaction(s): myalgias Social History Tobacco Use Smoking status: Former Current packs/day: 0.00 Types: Cigarettes Quit date: 08/12/2000 Years since quittin.6 Smokeless tobacco: Never Substance Use Topics Alcohol use: Yes Alcohol/week: 2.0 standard drinks of alcohol Types: 2 Standard drinks or equivalent per week Drug use: Never Family History Problem Relation Name Age of Onset Multiple myeloma Mother Other (Osteomyelitis) Mother Dementia Father Hypertension Father Past Medical History: Diagnosis Date Allergic GERD (gastroesophageal reflux disease) Headache Varicella Past Surgical History: Procedure Laterality Date CARDIAC SURGERY COLONOSCOPY 2004 HERNIA REPAIR 1958 Visit Vitals BP 144/84 Pulse 94 Resp 16 Ht 5' 11 Wt 201 lb 6.4 oz SpO2 95% BMI 28.09 kg/m Smoking Status Former BSA 2.14 m Review of Systems Constitutional: Negative for chills, fatigue and fever. HENT: Negative for congestion, ear pain, rhinorrhea, sinus pressure and sore throat. Eyes: Negative for pain, discharge and redness. Respiratory: Negative for cough, shortness of breath and wheezing. Cardiovascular: Negative for chest pain, palpitations and leg swelling. Gastrointestinal: Negative for abdominal pain, constipation, diarrhea, nausea and vomiting. Genitourinary: Negative for dysuria, frequency and urgency. Musculoskeletal: Negative for arthralgias and back pain. Skin: Negative for rash. Toe nail changes Neurological: Negative for dizziness, numbness and headaches. Psychiatric/Behavioral: Negative for confusion, dysphoric mood and sleep disturbance. Objective Physical Exam Constitutional: General: He is not in acute distress. Appearance: Normal appearance. Comments: Very pleasant HENT: Head: Normocephalic and atraumatic. Right Ear: Tympanic membrane and ear canal normal. Left Ear: Tympanic membrane and ear canal normal. Nose: Nose normal. Mouth/Throat: Mouth: Mucous membranes are moist. Pharynx: Oropharynx is clear. Eyes: General: No scleral icterus. Extraocular Movements: Extraocular movements intact. Conjunctiva/sclera: Conjunctivae normal. Pupils: Pupils are equal, round, and reactive to light. Cardiovascular: Rate and Rhythm: Normal rate and regular rhythm. Pulses: Normal pulses. Pulmonary: Effort: Pulmonary effort is normal. Breath sounds: Normal breath sounds. No wheezing, rhonchi or rales. Abdominal: General: Bowel sounds are normal. There is no distension. Palpations: Abdomen is soft. Tenderness: There is no abdominal tenderness. There is no guarding. Musculoskeletal: General: No swelling, tenderness, deformity or signs of injury. Normal range of motion. Cervical back: Normal range of motion. No tenderness. Lymphadenopathy: Cervical: No cervical adenopathy. Skin: General: Skin is warm and dry. Findings: No erythema. Comments: Right great toenail discolored and thickened. Left great toenail distal 2/3 of nail is discolored and thickened, proximal 1/3 of nail has cleared. Neurological: General: No focal deficit present. Mental Status: He is alert and oriented to person, place, and time. Cranial Nerves: No cranial nerve deficit. Sensory: No sensory deficit. Motor: No weakness. Coordination: Coordination normal. Gait: Gait normal. Psychiatric: Attention and Perception: Attention normal. Mood and Affect: Mood is anxious (Mildly). Mood is not depressed. Speech: Speech normal. Behavior: Behavior normal. Thought Content: Thought content normal. Cognition and Memory: Cognition normal. Judgment: Judgment normal. Assessment/Plan Diagnoses and all orders for this visit: Wellness examination - CBC and differential - Comprehensive metabolic panel - Lipid panel - Hemoglobin A1c - PSA Wellness form reviewed in detail with the patient. Encouraged patient to stay up to date on immunizations and preventative testing. Encouraged healthy diet, stay active. Will continue with yearly wellness exams. IGT (impaired glucose tolerance) - Comprehensive metabolic panel - Hemoglobin A1c Will recheck with today's fasting labs. Will notify pt of the results once received. Mixed hyperlipidemia - CBC and differential - Comprehensive metabolic panel - Lipid panel Will recheck with today's fasting labs. Will notify pt of the results once received. Seasonal allergies This is a chronic medical condition that is stable since last assessment. No changes in treatment are suggested at this time. Can take OTC allergy medication prn. Benign prostatic hyperplasia without lower urinary tract symptoms - PSA Will recheck with today's fasting labs. Will notify pt of the results once received. Diverticulosis This is a chronic medical condition that is stable since last assessment. No current symptoms. Willcontinue to monitor. Gastroesophageal reflux disease without esophagitis This is a chronic medical condition that is stable since last assessment. No current symptoms. Willcontinue to monitor. Lumbosacral spondylosis without myelopathy This is a chronic medical condition that is stable since last assessment. No current symptoms. Willcontinue to monitor. Former smoker The patient was counseled on the importance of maintaining cigarette smoking abstinence. The patient continues to refrain from smoking and is committed to avoiding tobacco use. Chronic cough This is a chronic medical condition that is stable since last assessment. No current symptoms. Willcontinue to monitor. Overweight Patient has lost 19 pounds over the last year. Advised pt this is excellent. Encouraged continue tostay active and aim for healthy diet. Screening for malignant neoplasm of prostate - PSA Will recheck with today's fasting labs. Will notify pt of the results once received. White coat syndrome without diagnosis of hypertension BP mildly higher on recheck. Encouraged him to obtain a BP cuff so he can monitor his BP at home periodically. Onychomycosis of great toe - terbinafine (LamISIL) 250 MG tablet; Take 1 tablet (250 mg) by mouth Daily - CBC; Future - Hepatic function panel; Future Restart Lamisil as prescribed. Reminded of potential s/e, will need to recheck CBC and Hepatic Function in 6 weeks. Call office in three months if no improvement would plan on Podiatry referral at that time for further evaluation and treatment. Can continue topical treatment daily. Follow up in about 1 year (around 03/24/2026) for Wellness. [facility] Evaluation note Note Date & TypeNoteFacilityEvaluation note* Diagnosis Wellness examination- Primary IGT (impaired glucose tolerance) Impaired glucose tolerance test Mixed hyperlipidemia Mixed hyperlipidemia Seasonal allergies Allergic rhinitis, cause unspecified Benign prostatic hyperplasia without lower urinary tract symptoms Diverticulosis Diverticulosis of colon (without mention of hemorrhage) Gastroesophageal reflux disease without esophagitis Esophageal reflux Lumbosacral spondylosis without myelopathy Former smoker Personal history of tobacco use, presenting hazards to health Chronic cough Cough Overweight Screening for malignant neoplasm of prostate White coat syndrome without diagnosis of hypertension Onychomycosis of great toe documented in this encounter [facility] Evaluation note Note Date & TypeNoteFacilityEvaluation note* Diagnosis Mixed hyperlipidemia- Primary Mixed hyperlipidemia documented in this encounter [facility] Summary Purpose Family History No Family History Records FoundNo Family History Records FoundNo Family History Records Found Advance Directives No Advanced Directives Records FoundNo Advanced Directives Records FoundNo Advanced Directives Records Found Additional Source Comments (unrecognized sect ion and content) No Status Records FoundNo Status Records FoundNo Status Records Found INFORMATION SOURCE (unrecogn ized section and content) DATE CREATED AUTHOR 07/30/2019 [facility] DATE CREATED AUTHOR AUTHOR'S ORGANIZ ATION 03/26/2025 [facility] DATE CREATED AUTHOR AUTHOR'S ORGANIZ ATION 03/26/2025 [facility] Care Teams (unrecognized sec tion and content) Team MemberRelationshipSpecialtyStart DateEnd Date Garrett Orozco MD [address] [facility] [address] [place] [address] PCP - [employer]11/10/20 Garrett Orozco MD [address] [facility] [address] [place] [address] PCP - GeneralInternal Medicine01/30/23Team MemberRelationshipSpecialtyStart Date End Date Garrett Orozco MD [address] [facility] [address] [place] [address] PCP - [employer]11/10/20 Garrett Orozco MD [address] [facility] [address] [place] [address] PCP - [facility]01/30/23Team MemberRelationshipSpecialtyStart Date End Date Garrett Orozco MD [address] [facility] [address] [place] [address] PCP - [employer]11/10/20 Garrett Orozco MD [address] [facility] [address] [place] [address] PCP - [facility]01/30/23 FOR RECORDS PERTAINING TO PATIENTS WHO ARE [...] BE BASED ON THE PRIMARY CLINICAL RECORDS. [employer]. provides no warranty or guarantee of the accuracy or completeness of information in this document.
--- OUTSIDE RECORDS SUMMARY | 2025-06-05 07:16 | XMS_ITS | Patient Health Record ---
Author Organization [facility] [place] Address [address] [place] [address] Care Team Providers Care Silk Worker Name Role Phone Garrett Orozco MD Primary Care Provider Unavailab le Allergies No Known Allergies Reason For Referral No Information Medications Medication SIG (Take, Route, Frequency, Duration) Notes Start Date End Date Status DDAVP 0.2 MG 1 tablet at bedtime Orally Once a day; Duration: 30 days ActiveVitamin CActiveVitamin DActiveMultiple VitaminActiveOmeprazoleActive FamotidineActiveFish OilActiveoxyBUTYnin Chloride 5 MG1 tablet Orally 3 hours before bed; Duration: 30 day(s)See visit 04/03/2207/Not-TakingTrospium Chloride 20 MG1 tablet at bedtime on an empty stomach Orally BID; Duration: 30 day(s)04/10/2022Not-TakingZincActive Social History Tobacco Use: Social History Observation Description Date Details (start date - stop date) Former Smoker NA - 08/13/2000 Tobacco Use/Smoking Question Answer Notes Patient is a former smoker When did you stop smoking?08/13/2000Alcohol Screen (Audit-C) Question Answer Notes Did you have a drink containing alcohol in the p ast year? Yes How often did you have a drink containing alcohol in the past year?Weekly (3 points)Vqumrc7XteimlhcussuhySecsyiyo Problems Problem Type SNOMED Code ICD Code Onset Dates Problem Status W/U Status Risk Notes Problem Benign prostatic hyp erplasia (669657624) BPH (benign prostatic hyperplasia) (N40.0) ActiveconfirmedProblemLower urinary tract symptoms due to benign prostatic hypertrophy ([id number])Benign prostatic hyperplasia with lower urinary tract symptoms, symptom details unspecified (N40.1)Activeconfirmed Plan Of Treatment Future Test Test Name Order Date BMP (BASIC MET PANEL - W/GFR) 08/02/2023 BMP (BASIC MET PANEL - W/GFR) 2023 Insurance Providers Payer Name Payer Address Payer Phone Subscriber Number Group Number Insured Name Patient Relationship to Insured Coverage Start Date Coverage End Date [employer] PPO PLUS LOCAL PLAN [address] [place] [phone] [id number] Garrett Ware Self - patient is the insured 3 Medical (General) History Medical History History ICD Code GERD RbmudrfuY21.1Benign prostatic hyperplasia with lower urinary tract symptoms, symptom details vkbvlwsgpgkX25.1Frequency of hliiwycivywJ13.0Surgical History Surgery Date(Month/Year) testicle surgery as a child
--- OUTSIDE RECORDS SUMMARY | 2025-06-05 07:16 | XMS_ITS | Clinical Summary ---
Author Organization [facility] Address [address] [place] [address] Care Team Providers Care [employer] Name Role Phone Garrett Orozco MD Unavailable [phone] Garrett Orozco MD Primary Care Provider [phone] Allergies Active AllergyReactionsCriticalityNoted AzxeHjybprpkFbpiszgzhgts90/21/2023 Other Reaction(s): myalgias Rowscaijoknf97/21/2023 Other Reaction(s): myalgias Krkbehmceri29/21/2023 Other Reaction(s): myalgias Medications MedicationSigDispense QuantityRefillsLast FilledStart DateEnd DateStatus Multiple Vitamin (MULTIVITAMIN ADULT PO) Take 1 tablet by mouth 1 (one) time each day.Active desonide (DesOwen) 0.05 % cream Apply 1 application topically 2 (two) times a day as needed for irritation 08/21/2022ctive famotidine (Pepcid) 20 MG tablet Take 1 tablet by mouth as needed at bedtime for indigestion or heartburn.Active desmopressin (DDAVP) 0.2 MG tablet Take 0.2 mg by mouth as needed at bedtimeActive fluorouracil (Efudex) 5 % cream Apply 1 application topically Daily as tboaku7108/27/2023ctive triamcinolone (Kenalog) 0.1 % ointment Apply 1 application topically 2 (two) times a day as needed for irritation 5Active zinc gluconate 50 MG tablet Take 50 mg by mouth DailyActive cholecalciferol (Vitamin D-3) 25 MCG tablet Take 25 mcg by mouth DailyActive terbinafine (LamISIL) 250 MG tablet Indications:Onychomycosis of great toeTake 1 tablet (250 mg) by mouth Daily 90 tablet 5Active fenofibrate (Tricor) 145 MG tablet Indications:Mixed hyperlipidemiaTake 1 tablet (145 mg) by mouth Daily 90 tablet 5Active olmesartan (BENIcar) 20 MG tablet Indications:Primary hypertensionTake 1 tablet (20 mg) by mouth Daily 30 tablet 5011/28/2025ctive Active Problems ProblemNoted DateDiagnosed DateStatin mvrlycmtmtp68/14/7983Vwadqepzvi61/13/2025 White coat syndrome without diagnosis of pvmuptyiemaa30/13/2025IGT (impaired glucose tolerance)03/23/2024Seasonal ruigvobdh97/26/2023hronic cough02/04/2023 Uumbkfweinieuj39/21/2023Former wkzzcp5501/30/2023Lumbosacral spondylosis without wyzpyjfvmb83/21/2023Mixed eawynhdpfimsjx87/21/2023enign prostatic hyperplasia without lower urinary tract gjxleoqh28/13/2013Esophageal rmpyjz1307/24/2013 Encounters DateTypeDepartmentCare UvypSldgbwzrfco38/14/2025bstract [facility] [address] [place] [id number] Garrett Orozco MD 03/25/2025Results Follow-Up [facility] [address] [place] [address] Zahida Webster PA CBC and differential, Comprehensive metabolic panel, Lipid panel, Additional followed-up results: 11:00 AM EDTOffice Visit [facility] [address] [place] [address] Zahida Webster PA Wellness examination (Primary Dx); IGT (impaired glucose tolerance); Mixed hyperlipidemia ; Seasonal allergies; Benign prostatic hyperplasia without lower urinary tract symptoms; Diverticulosis; Gastroesophageal reflux disease without esophagitis; Lumbosacral spondylosis without myelopathy; Former smoker; Chronic cough; Overweight; Screening for malignant neoplasm of prostate; White coat syndrome without diagnosis of hypertension; Onychomycosis of great toe08/13/2025Bamboo flowsheet [facility] [address] [facility] [address] [place] [address] Zahida Webster PA 03/24/20254008Jqxkhk97/06/6680Bojhvb81/25/2025Travelfrom Last 3 Months Immunizations ImmunizationAdministration DatesNext DueABRYSVO - Respiratory syncytial virus (RSV), vaccine, bivalent, protein subunit RSV prefusion F, diluent reconstituted, 0.5 mL, PF07/11/2023Influenza, High Dose Seasonal, Preservative Free04/23/2024Influenza, injectable, MDCK, preservative free, quadrivalent 05/10/2023Influenza, injectable, quadrivalent, preservative free05/25/2022, 04/28/2021,04/29/2020,05/26/2019,04/29/2018,05/17/2016Influenza, seasonal, injectable, preservative free05/15/2017,05/21/2015Influenza, seasonal, intradermal, preservative free05/16/2015,04/28/2014Pfizer Bivalent Booster 12 Years And Older2Pneumococcal Conjugate PCV 13008/23/2019Pneumococcal Polysaccharide WNHA88142995Qlol60/03/2008Zoster, Lhkcdqmbyxj31/04/2020 Family History Medical HistoryRelationNameCommentsDementiaFatherHypertensionFatherMultiple myelomaMotherOsteomyelitisMotherRelationNameStatusCommentsFatherMother Social History Tobacco UseTypesPacks/DayYears UsedDateSmoking Tobacco: FormerCigarettesQuit: 08/12/2000Smokeless Tobacco: Never Tobacco Cessation:Counseling Given: Not Answered Alcohol UseStandard Drinks/WeekCommentsYes2 (1 standard drink = 0.6 oz pure alcohol)B1300 Health LiteracyAnswerDate RecordedHow often do you need to have someone help you when you read instructions, pamphlets, or other written material from your doctor or pharmacy?Never03/16/2024Humiliation, Afraid, Rape, and Kick questionnaireAnswerDate RecordedWithin the last year, have you been afraid of your partner or ex-partner?No01/30/2023Within the last year, have you been humiliated or emotionally abused in other ways by your partner or ex-partner?No01/30/2023Within the last year, have you been kicked, hit, slapped, or otherwise physically hurt by your partner or ex-partner?No01/30/2023Within the last year, have you been raped or forced to have any kind of sexual activity by your partner or ex-partner?No01/30/2023Social Connection and Isolation Panel AnswerDate RecordedIn a typical week, how many times do you talk on the phone with family, friends, or neighbors?More than three times a week03/16/2024How often do you get together with friends or relatives?Twice a week03/16/2024How often do you attend baptism or amish services?More than 4 times per year 03/16/2024o you belong to any clubs or organizations such as baptism groups, unions, fraternal or athletic groups, or school groups?No03/16/2024How often do you attend meetings of the clubs or organizations you belong to?Never03/16/2024 Are you , , , , never , or living with a partner?Never istffzc2903/16/2024UDIT-CAnswerDate RecordedQ1: How often do you have a drink containing alcohol?2-4 times a month03/16/2024Q2: How many drinks containing alcohol do you have on a typical day when you are drinking?1 or 2 03/16/2024Q3: How often do you have six or more drinks on one occasion?Never 03/16/2024Overall Financial Resource Strain (CARDIA)AnswerDate RecordedHow hard is it for you to pay for the very basics like food, housing, medical care, and heating?Not very hard03/16/2024HQ-2AnswerDate RecordedPatient Health Questionnaire-2 Wgkfw868Finun[facility] [place] of Occupational Health - Occupational Stress QuestionnaireAnswerDate RecordedDo you feel stress - tense, restless, nervous, or anxious, or unable to sleep at night because yourmind is troubled all the time - these days?Rather much03/16/2024Exercise Vital Sign AnswerDate RecordedOn average, how many days per week do you engage in moderate to strenuous exercise (like a brisk walk)?5 days03/16/2024On average, how many minutes do you engage in exercise at this level?30 min03/16/2024Hunger Vital SignAnswerDate RecordedWithin the past 12 months, you worried that your food would run out before you got the money to buymore.Never true03/16/2024Within the past 12 months, the food you bought just didn't last and you didn't have money to get more.Never true03/16/2024RAPARE - TransportationAnswerDate RecordedIn the past 12 months, has lack of transportation kept you from medical appointments or from getting medications?No03/16/2024In the past 12 months, has lack of transportation kept you from meetings, work, or from getting things needed for daily living?No03/16/2024Housing Stability Vital SignAnswerDate RecordedIn the last 12 months, was there a time when you were not able to pay the mortgage or rent on time?No01/30/2023In the last 12 months, how many places have you lived?In the last 12 months, was there a time when you did not have a steady place to sleep or slept in city [facility] (including now)?No 01/30/2023Housing Stability Vital SignAnswerDate RecordedIn the last 12 months, was there a time when you were not able to pay the mortgage or rent on time?No 03/16/2024Number of Times Moved in the Last YearNot on file03/16/2024t any time in the past 12 months, were you homeless or living in a alf (including now)? No03/16/2024Sex and Gender InformationValueDate RecordedSex Assigned at BirthNot on fileLegal OouSfyg0410/24/2022 7:05 PM EDTGender IdentityNot on fileSexual OrientationNot on file Last Filed Vital Signs Vital SignReadingTime TakenCommentsBlood Jswzcgmp079/8403/24/2025 11:02 AM EDT Gogxq2799/ 11:02 AM EDTTemperature--Respiratory Yuae072003/24/2025 11:02 AM EDTOxygen Vwxpqjkidv15%03/24/2025 11:02 AM EDTInhaled Oxygen Concentration-- Drpnos44.4 kg (201 lb 6.4 oz)03/24/2025 11:02 AM GEIKmvgvs386.3 cm (5' 11 ) 03/24/2025 11:02 AM EDTBody Mass Index28.0903/24/2025 11:02 AM EDT Plan of Treatment DateTypeDepartmentCare Team (Latest Contact Info)Ehhkbydzkwe82/13/2026 8:00 AM EDTOffice Visit [facility] [address] [facility] [address] [place] [address] Zahida Webster PA [address] [facility] [address] [place] [address] Health MaintenanceDue DateLast DoneCommentsCT Qzihnxnuhroo76/23/1959FIT-DNA 1958FIT1958FOBT1958 2745Meelqzdrkopdp20/23/1959Influenza Vaccine (#1)509/07/2024, 05/10/2023, 05/25/2022, Additional history exists Pneumococcal Vaccine: 65+ Years (3 of 3 - PCV20 or PCV21)/, 08/23/20197526Uugzabcakzt89Colorectal Cancer Uietqchfb47/27/2026 Procedures Procedure NamePriorityDate/TimeAssociated DiagnosisCommentsPSA, TOTALRoutine 03/24/2025 11:20 AM EDT Wellness examination Benign prostatic hyperplasia without lower urinary tract symptoms Screening for malignant neoplasm of prostate HEMOGLOBIN W2ZOvrncji71/13/2025 11:20 AM EDT Wellness examination IGT (impaired glucose tolerance) LIPID IHGOMHkursij36/13/2025 11:20 AM EDT Wellness examination Mixed hyperlipidemia COMPREHENSIVE METABOLIC VNEJXIybzcto32/13/2025 11:20 AM EDT Wellness examination IGT (impaired glucose tolerance) Mixed hyperlipidemia CBC (INCLUDES DIFF/PLT)Gqcodmm0303/24/2025 11:20 AM EDT Wellness examination Mixed hyperlipidemia COLONOSCOPY JVBKLYCEVBAjaduph88/27/2016 from Last 3 Months or Most Recently Relevant to Health Maintenance Results * CBC and differential (03/24/2025 11:20 AM EDT)ComponentValueRef RangeTest MethodAnalysis TimePerformed AtPathologist SignatureWHITE BLOOD CELL COUNT7.0 3.8 - 10.8 Thousand/uLQUESTRED BLOOD CELL COUNT5.484.20 - 5.80 Million/uLQUEST UMETQVZASU58.213.2 - 17.1 g/cGKDDWETWEVYFYOAE48.938.5 - 50.0 %RZPTECPK28.180.0 - 100.0 dJCXRJQQDL64.627.0 - 33.0 klXNTSSJZNV14.532.0 - 36.0 g/dLQUESTComment: For adults, a slight decrease in the calculated MCHC value (in the range of 30 to 32 g/dL) is most likely not clinically significant; however, it should be interpreted with caution in correlation with other red cell parameters and the patient's clinical condition. RDW13.511.0 - 15.0 %QUESTPLATELET VMZMB268596 - 400 Thousand/uLQUESTMPV9.17.5 - 12.5 fLQUESTABSOLUTE NEUTROPHILS4,7181,500 - 7,800 cells/uLQUESTABSOLUTE LYMPHOCYTES1,725461 - 3,900 cells/uLQUESTABSOLUTE OWXBVEDEI739235 - 950 cells/uL QUESTABSOLUTE RBUJIPLDHZO25801 - 500 cells/uLQUESTABSOLUTE YJNZDIWFQ059 - 200 cells/eGUATOIGQIHYGNDMZY69.4%ZCBKQFQJMZVGJPAG42.9%QUESTMONOCYTES6.4%QUEST EOSINOPHILS1.6%QUESTBASOPHILS0.7%QUESTSpecimen (Source)Anatomical Location / LateralityCollection Method / VolumeCollection TimeReceived TimeBloodVenous blood specimen / Yghxwlg7803/24/2025 11:20 AM EDT03/24/2025 11:20 AM EDT Narrative [facility] - 03/25/2025 2:59 AM EDT FASTING:YES FASTING: YES Resulting Agency Comment Performing Organization Information ?Site ID: QPT ?Name: [facility] ?Address: [address] [place] [address], [address] [place] [phone] ?Director: Kosta Senior MD Authorizing ProviderResult TypeResult StatusZahida Adam [facility] Hospitaldrew [facility] BLOOD ORDERABLESFinal ResultPerforming OrganizationAddressCity/State/[facility] CodePhone Number [facility] * PSA (03/24/2025 11:20 AM EDT)ComponentValueRef RangeTest MethodAnalysis Time Performed AtPathologist SignaturePSA, TOTAL2.40< OR = 4.00 ng/mLQUESTComment: The total PSA value from this assay system is standardized against the WHO standard. The test result will be approximately 20% lower when compared to the equimolar-standardized total PSA (Shaggy Kerrick). Comparison of serial PSA results should be interpreted with this fact in mind. This test was performed using the Siemens chemiluminescent method. Values obtained from different assay methods cannot be used interchangeably. PSA levels, regardless of value, should not be interpreted as absolute evidence of the presence or absence of disease. Specimen (Source)Anatomical Location / LateralityCollection Method / Volume Collection TimeReceived TimeBloodVenous blood specimen / Bhnnpfn5703/24/2025 11:20 AM EDT03/24/2025 11:20 AM EDT Narrative [facility] - 03/25/2025 2:59 AM EDT FASTING:YES FASTING: YES Resulting Agency Comment Performing Organization Information ?Site ID: QPT ?Name: [facility] ?Address: [address] [place] [address], [address] [place] [phone] ?Director: Kosta Senior MD Authorizing ProviderResult TypeResult StatusZahida Adam [facility]ourC[facility] BLOOD ORDERABLESFinal ResultPerforming OrganizationAddressCity/State/[facility] CodePhone Number [facility] * Hemoglobin A1c (03/24/2025 11:20 AM EDT)ComponentValueRef RangeTest Method Analysis TimePerformed AtPathologist SignatureHemoglobin A1C5.6<5.7 %QUEST Comment: For the purpose of screening for the presence of diabetes: <5.7% Consistent with the absence of diabetes 5.7-6.4% ?Consistent with increased risk for diabetes ?(prediabetes) > or =6.5% Consistent with diabetes This assay result is consistent with a decreased risk of diabetes. Currently, no consensus exists regarding use of hemoglobin A1c for diagnosis of diabetes in children. According to [place] Diabetes Association (ADA) guidelines, hemoglobin A1c <7.0% represents optimal control in non- diabetic patients. Different metrics may apply to specific patient populations. Standards of Medical Care in Diabetes(ADA). Specimen (Source)Anatomical Location / LateralityCollection Method / Volume Collection TimeReceived TimeBloodVenous blood specimen / Qokdrpq3003/24/2025 11:20 AM EDT03/24/2025 11:20 AM EDT Narrative [facility] - 03/25/2025 2:59 AM EDT FASTING:YES FASTING: YES Resulting Agency Comment Performing Organization Information ?Site ID: QPT ?Name: [facility] ?Address: [address] [place] [address], [address] [place] [phone] ?Director: Kosta Senior MD Authorizing ProviderResult TypeResult StatusZahida Webster [facility] BLOOD ORDERABLESFinal ResultPerforming OrganizationAddressCity/State/ZIP CodePhone Number [facility] * (ABNORMAL) Lipid panel (03/24/2025 11:20 AM EDT)ComponentValueRef RangeTest MethodAnalysis TimePerformed AtPathologist SignatureCHOLESTEROL, GYJBI805<200 mg/dLQUESTHDL MEPFGSIATLD40> OR = 40 mg/lUDJKAIXOYVYHHEOJDHA591<150 mg/dLQUEST LDL NJMZRMVBXXC387(H)mg/dL (calc)QUESTComment: Reference range: <100 Desirable range <100 mg/dL for primary prevention; <70 mg/dL for patients with CHD or diabetic patients with > or = 2 CHD risk factors. LDL-C is now calculated using the Frank calculation, which is a validated novel method providing better accuracy than the Friedewald equation in the estimation of LDL-C. Marcos MCFADDEN et al. VINICIO. 2013;310(19): 7759-6999 (http://education.[employer]/faq/DCN338) CHOL/HDLC RATIO4.0<5.0 (calc)QUESTNON HDL ATILKVELTXK536(H)<130 mg/dL (calc) QUESTComment: For patients with diabetes plus 1 major ASCVD risk factor, treating to a non-HDL-C goal of <100 mg/dL (LDL-C of <70 mg/dL) is considered a therapeutic option. Specimen (Source)Anatomical Location / LateralityCollection Method / Volume Collection TimeReceived TimeBloodVenous blood specimen / Irncwrx6003/24/2025 11:20 AM EDT03/24/2025 11:20 AM EDT Narrative [facility] - 03/25/2025 2:59 AM EDT FASTING:YES FASTING: YES Resulting Agency Comment Performing Organization Information ?Site ID: QPT ?Name: [facility] ?Address: [address] [place] [phone] ?Director: Kosta Senior MD Authorizing ProviderResult TypeResult StatusZahida Webster PAL BLOOD ORDERABLESFinal ResultPerforming OrganizationAddressCity/State/ZIP CodePhone Number [facility] * Comprehensive metabolic panel (03/24/2025 11:20 AM EDT)ComponentValueRef Range Test MethodAnalysis TimePerformed AtPathologist TchruojbjCpzhfep3176 - 99 mg/dLQUESTComment: ? Fasting reference interval GGV223 - 25 mg/dLQUESTCreatinine0.960.70 - 1.35 mg/lHGPIDCPVQS00> OR = 60 mL/min/1.69y1KQHHKCPC/CREATININE RATIOSEE NOTE: (calc)QUESTComment: ?? Not Reported: BUN and Creatinine are within ?? reference range. ? Ualmks033820 - 146 mmol/LQUESTPotassium, Bld4.23.5 - 5.3 mmol/MMTUDYAvgecsnf692 98 - 110 mmol/LQUESTCarbon Wspmtlw1035 - 32 mmol/LQUESTCalcium9.98.6 - 10.3 mg/dLQUESTPROTEIN, TOTAL7.66.1 - 8.1 g/dLQUESTALBUMIN4.93.6 - 5.1 g/dLQUEST GLOBULIN2.71.9 - 3.7 g/dL (calc)QUESTALBUMIN/GLOBULIN RATIO1.81.0 - 2.5 (calc) QUESTBILIRUBIN, TOTAL0.60.2 - 1.2 mg/dLQUESTALKALINE AAOXGXLTDYE2600 - 144 U/L ZRCEHCII3857 - 35 U/ZPVSJVPUI378 - 46 U/LQUESTSpecimen (Source)Anatomical Location / LateralityCollection Method / VolumeCollection TimeReceived TimeBlood Venous blood specimen / Omblqrn8003/24/2025 11:20 AM EDT03/24/2025 11:20 AM EDT Narrative [facility] - 03/25/2025 2:59 AM EDT FASTING:YES FASTING: YES Resulting Agency Comment Performing Organization Information ?Site ID: QPT ?Name: [facility] ?Address: [address] [place] [phone] ?Director: Kosta Senior MD Authorizing ProviderResult TypeResult StatusZahida Adam [facility] Hospitaldrew PALAB BLOOD ORDERABLESFinal ResultPerforming OrganizationAddressCity/State/ZIP CodePhone Number [facility] * COLONOSCOPY DIAGNOSTIC (03/07/2016)Anatomical RegionLateralityModality Radiographic ImagingSpecimen (Source)Anatomical Location / Laterality Collection Method / VolumeCollection TimeReceived Time03/07/2016 Narrative 03/07/2016 7:50 PM EDT nrml Authorizing ProviderResult TypeResult StatusGarrett Orozco MDIMG XR PROCEDURES Final Result from Last 3 Months or Most Recently Relevant to Health Maintenance Insurance Care Teams Team MemberRelationshipSpecialtyStart DateEnd Date Garrett Orozco MD [address] [facility] [address] [place] [address] [facility] Garrett Orozco MD [address] [facility] [address] [place] [address] PCP - GeneralInternal Medicine01/30/23
--- OUTSIDE RECORDS SUMMARY | 2025-06-05 07:16 | XMS_ITS | Encounter Summary ---
Author Organization [facility] Address [address] [facility] [place] [address] Care Team Providers Care Flower Shop Laborer/Designer Name Role Phone Garrett Orozco MD Unavailable [phone] Garrett Orozco MD Primary Care Provider [phone] Encounter Details DateTypeDepartmentCare Team (Latest Contact Info)Czacwbgaffs43/14/2025Results Follow-Up [facility] [place] [facility] [address] [place] [address] Zeny Webster PA [address] [place] [address] CBC and differential, Comprehensive metabolic panel, Lipid panel, Additional followed-up results: 2 Social History Tobacco UseTypesPacks/DayYears UsedDateSmoking Tobacco: FormerCigarettesQuit: 08/12/2000Smokeless Tobacco: NeverAlcohol UseStandard Drinks/WeekCommentsYes2 (1 standard drink = 0.6 oz pure alcohol)B1300 Health LiteracyAnswerDate RecordedHow often do you need to have someone help you when you read instructions, pamphlets, or other written material from your doctor or pharmacy?Never 03/16/2024Humiliation, Afraid, Rape, and Kick questionnaireAnswerDate Recorded Within the last year, have you been afraid of your partner or ex-partner?No 01/30/2023Within the last year, have you been humiliated or emotionally abused in other ways by your partner or ex-partner?No06/21/2023Within the last year, have you been kicked, hit, slapped, or otherwise physically hurt by your partner or ex-partner?No01/30/2023Within the last year, have you been raped or forced to have any kind of sexual activity by your partner or ex-partner?No01/30/2023 Social Connection and Isolation PanelAnswerDate RecordedIn a typical week, how many times do you talk on the phone with family, friends, or neighbors?More than three times a week03/16/2024How often do you get together with friends or relatives?Twice a week03/16/2024How often do you attend mandaen or temple services?More than 4 times per year03/16/2024o you belong to any clubs or organizations such as mandaen groups, unions, frarimidi or athletic groups, or school groups?No03/16/2024How often do you attend meetings of the clubs or organizations you belong to?Never03/16/2024re you , , , , never , or living with a partner?Never [id number]/16/2024 AUDIT-CAnswerDate RecordedQ1: How often do you have a drink containing alcohol? 2-4 times a month03/16/2024Q2: How many drinks containing alcohol do you have on a typical day when you are drinking?1 or Q3: How often do you have six or more drinks on one occasion?Never03/16/2024Overall Financial Resource Strain (CARDIA)AnswerDate RecordedHow hard is it for you to pay for the very basics like food, housing, medical care, and heating?Not very hard03/16/2024 PHQ-2AnswerDate RecordedPatient Health Questionnaire-2 [id number] [place] [facility] - Occupational Stress QuestionnaireAnswerDate RecordedDo you feel stress - tense, restless, nervous, or anxious, or unable to sleep at night because yourmind is troubled all the time - these days?Rather much03/16/2024Exercise Vital SignAnswerDate RecordedOn average, how many days per week do you engage in moderate to strenuous exercise (like a brisk walk)?5 days08/05/2024On average, how many minutes do you engage in exercise at this level?30 min03/16/2024Hunger Vital SignAnswerDate RecordedWithin the past 12 months, you worried that your food would run out before you got the money to buy more.Never true03/16/2024Within the past 12 months, the food you bought just didn't last and you didn't have money to get more.Never true03/16/2024RAPARE - TransportationAnswerDate RecordedIn the past 12 months, has lack of transportation kept you from medical appointments or from getting medications?No 03/16/2024In the past 12 months, has lack of transportation kept you from meetings, work, or from getting things needed for daily living?No03/16/2024 Housing Stability Vital SignAnswerDate RecordedIn the last 12 months, was there a time when you were not able to pay the mortgage or rent on time?No01/30/2023In the last 12 months, how many places have you lived?In the last 12 months, was there a time when you did not have a steady place to sleep or slept in eug[place] (including now)?No01/30/2023Housing Stability Vital SignAnswerDate RecordedIn the last 12 months, was there a time when you were not able to pay the mortgage or rent on time?No03/16/2024Number of Times Moved in the Last Year Not on file03/16/2024t any time in the past 12 months, were you homeless or living in a group home (including now)?No03/16/2024Sex and Gender InformationValue Date RecordedSex Assigned at BirthNot on fileLegal TcaPrxv7810/24/2022 7:05 PM EDT Gender IdentityNot on fileSexual OrientationNot on filedocumented as of this encounter Miscellaneous Notes * Addendum Note - YUE Balderrama - 06/01/2025 2:41 PM EDTAddended by: ZENY WEBSTER on: 06/01/2025 02:41 PM Modules accepted: Orders * Telephone Encounter - YUE Balderrama - 03/25/2025 1:12 PM EDT MyChart Message documented in this encounter Plan of Treatment DateTypeDepartmentCare Team (Latest Contact Info)Yzabrzeximo85/13/2026 8:00 AM EDTOffice Visit [facility] [place] [facility] [address] [place] [id number] Zeny Webster PA [address] [place] [address] documented as of this encounter Visit Diagnoses Diagnosis Mixed hyperlipidemia- Primary Primary hypertension Unspecified essential hypertension documented in this encounter Care Teams Team MemberRelationshipSpecialtyStart DateEnd Date Garrett Orozco MD [address] [place] [address] PCP - Tian Powell11/10/20 Garrett Orozco MD [address] [place] [address] PCP - GeneralInternal Medicine01/30/23documented as of this encounter
[2025-06-05 09:39] LABS: Alanine Aminotransferase 26 U/L (16-63); Albumin Globulin Ratio 1.3; Albumin Level 4.0 g/dL (3.4-5.0); Alkaline Phosphatase 81 U/L (46-116); Aspartate Amino Transferase 21 U/L (15-37); Globulin 3.2 g/dL; Total Protein 7.2 g/dL (6.4-8.2)
[2025-06-05 09:47] LABS: Hematocrit 46.5 % (42.0-54.0); Hemoglobin 15.4 g/dL (14.0-18.0); Immature Granulocytes Abs Auto 0.01 10^3/uL (0.00-0.03); Immature Granulocytes Pct Auto 0.2 % (0.0-0.5); Lymphocytes Absolute Auto 1.4 10^3/uL (1.2-3.8); Mean Corpuscular HGB Conc 33.1 g/dL (29.9-35.2); Mean Corpuscular Hemoglobin 29.2 pg (25.9-34.0); Mean Corpuscular Volume 88.2 fL (80.0-94.0); Platelet Count 246 10^3/uL (150-450); Red Blood Count 5.27 10^6/uL (4.70-6.10); White Blood Count 5.3 10^3/uL (4.0-11.0)
== END 2025-06-05 07:12 | disposition home or self-care (01) ==
LOC: LAB 07:12
PROVIDERS: PCP Internal Medicine; Visit Provider Physician Assistant
DX: B35.1 Tinea unguium (principal)
CPT/HCPCS: 36415; 80076; 85025